=== PATIENT | male | born 1975 | race Hispanic/Latino ===

== ENCOUNTER 2018-01-06 20:16 | Emergency (ER) | payer MEDICAID, OTHER ==
[2018-01-06] MEDS ORDERED: Sodium Chloride 0.9% 500 ML IV STA (23:20)
--- NOTE | 2018-01-06 23:32 | ED PDOC ---
Lower Extremity Pain/Injury Time Seen by Provider: 01/06/18 23:00 Chief Complaint (Nursing): Lower Extremity Problem/Injury Chief Complaint (Provider): Left ankle pain History Per: Patient History/Exam Limitations: no limitations Onset/Duration Of Symptoms: Days (x1) Current Symptoms Are (Timing): Still Present Additional Complaint(s): 42 year old male presents to the ED complaining of left ankle pain since this morning. Patient states pain started this morning when he woke up which was mild at first but worsened throughout the day. Prior to arrival, pain was more severe and had a subjective fever and chills. Ankle had also gotten progressively more swollen since the morning. Denies trauma, injury, any other joint pain, cough, runny nose, throat pain, vomiting, diarrhea, dysuria, or frequency. PMD: [place] Past Medical History Reviewed: Historical Data, Nursing Documentation, Vital Signs Vital Signs: Last Vital Signs Temp 99.9 F H 01/06/18 21:17 Pulse 104 H 01/06/18 21:17 Resp 18 01/06/18 21:17 BP 128/94 H 01/06/18 21:17 Pulse Ox 97 01/06/18 21:17 - Medical History PMH: HTN - Surgical History Surgical History: No Surg Hx - Family History Family History: States: Hypertension - Social History Current smoker - smoking cessation education provided: No - Home Medications Home Medications: Ambulatory Orders Medication Instructions Recorded Indomethacin [Indocin] 50 mg PO TID #18 cap 01/07/18 - Allergies Allergies/Adverse Reactions: Allergies Allergy/AdvReac Type Severity Reaction Status Date / Time No Known Allergies Allergy Verified 10/28/14 15:17 Review of Systems ROS Statement: Except As Marked, All Systems Reviewed And Found Negative Constitutional: Positive for: Fever, Chills ENT: Negative for: Nose Discharge (runny nose), Throat Pain Respiratory: Negative for: Cough Gastrointestinal: Negative for: Vomiting, Diarrhea Genitourinary Male: Negative for: Dysuria, Frequency Musculoskeletal: Positive for: Other (Left ankle pain and swelling) Physical Exam - Reviewed Nursing Documentation Reviewed: Yes Vital Signs Reviewed: Yes - Physical Exam Appears: Positive for: In Acute Distress (Mild painful distress) Head Exam: Positive for: ATRAUMATIC, NORMOCEPHALIC Skin: Positive for: Warm, Dry Cardiovascular/Chest: Positive for: Regular Rate, Rhythm, Tachycardia Respiratory: Positive for: Normal Breath Sounds. Negative for: Respiratory Distress Extremity: Positive for: Capillary Refill (less than 2 seconds), Other (Left ankle: Diffusely edematous which is worse on the lateral malleolus, no bony tenderness to palpation, limited flexion secondary to pain, light touch intact). Negative for: Tenderness (Achilles tendon), Calf Tenderness Lymphatic: Negative for: Adenopathy Neurologic/Psych: Positive for: Alert. Negative for: Motor/Sensory Deficits - Laboratory Results Result Diagrams: 01/06/18 23:59 01/06/18 23:59 - ECG O2 Sat by Pulse Oximetry: 97 (RA) Pulse Ox Interpretation: Normal Medical Decision Making Medical Decision Making: Initial Impression: Ankle pain and fever Differential includes septic arthritis, inflammatory joint, ankle sprain Initial Plan: --VBG --CMP --CRP stat --Uric acid stat --CBC --Erythrocyte sedimentation stat --Sodium chloride 500mL IV --Toradol 30mg IV --Tylenol 975mg PO --Blood culture --Left ankle X-ray Scribe Attestation: Documented by Matthew Donaldson acting as a scribe for Earnestine Crabtree MD. Provider Scribe Attestation: All medical record entries made by the Scribe were at my direction and personally dictated by me. I have reviewed the chart and agree that the record accurately reflects my personal performance of the history, physical exam, medical decision making, and the department course for this patient. I have also personally directed, reviewed, and agree with the discharge instructions and disposition. Disposition - Clinical Impression Clinical Impression: Ankle pain - Disposition Disposition: Transfer of Care Disposition Time: 00:00 Condition: STABLE Prescriptions: Indomethacin [Indocin] 50 mg PO TID #18 cap Patient Signed Over To: Thomas Dangelo Handoff Comments: Pending ER workup, podiatry consult, and final ER disposition
--- NOTE | 2018-01-07 00:17 | ED PDOC ---
- Laboratory Results Result Diagrams: 01/06/18 23:59 01/06/18 23:59 - ECG O2 Sat by Pulse Oximetry: 97 (RA) Medical Decision Making Medical Decision Makin:00 Patient endorsed to this provider from Dr. Crabtree. Pending podiatry consult. 01:28 Lower Extremity Ultrasound Findings: Real-time ultrasound images of the deep venous system with Doppler evaluation. Normal compression, spontaneity and augmentation. Normal color Doppler. No intraluminal thrombus is seen. IMPRESSION: No evidence of deep venous thrombosis. 01:31 Labs reviewed and significant for elevated uric acid level. Patient reporting improvement of symptoms and was evaluated by podiatry who cleared patient for discharge with diagnosis of gout. Patient advised to follow up with Dr. Larkin. Condition stable. Scribe Attestation: Documented by Matthew Donaldson acting as a scribe for Thomas Dangelo MD. Provider Scribe Attestation: All medical record entries made by the Scribe were at my direction and personally dictated by me. I have reviewed the chart and agree that the record accurately reflects my personal performance of the history, physical exam, medical decision making, and the department course for this patient. I have also personally directed, reviewed, and agree with the discharge instructions and disposition. Disposition - Clinical Impression Clinical Impression: Gout - POA Present On Arrival: None - Disposition Referrals: Clemente Larkin DPM [Staff Provider] - Disposition: Routine/Home Disposition Time: :31 Condition: STABLE Prescriptions: Indomethacin [Indocin] 50 mg PO TID #18 cap Instructions: Gout, Lifestyle Changes to Manage Gout Forms: [employer] ([place])
[2018-01-07 00:38] LABS: BASO # 0.1 K/uL (0.0-0.2); BASO % 0.5 % (0.0-2.0); EOS % 0.3 % (0.0-4.0); HEMOGLOBIN 14.5 g/dL (12.0-18.0); LYMPH # 1.5 K/uL (1.0-4.3); LYMPH % 11.4 % (20.0-40.0); MEAN CELL VOLUME 93.5 fl (80.0-94.0); MEAN CORPUSCULAR HEMOGLOBIN 31.4 pg (27.0-31.0); MEAN CORPUSCULAR HGB CONC 33.6 g/dL (33.0-37.0); MEAN PLATELET VOLUME 7.8 fl (7.2-11.7); MONO # 0.7 K/uL (0.0-0.8); MONO % 4.9 % (0.0-10.0); NEUT # 10.9 K/uL (1.8-7.0); NEUT % 82.9 % (50.0-75.0); NRBC % 0.1 % (0.0-0.0); RBC 4.62 Mil/uL (4.40-5.90); RED CELL DISTRIBUTION WIDTH 13.3 % (11.5-14.5); WHITE BLOOD COUNT 13.2 K/uL (4.8-10.8)
[2018-01-07 00:48] LABS: ALB/GLOB RATIO 1.2 (1.0-2.1); ALBUMIN 4.3 g/dL (3.5-5.0); ALT/SGPT 28 U/L (21-72); AST/SGOT 16 U/L (17-59); BLOOD UREA NITROGEN 15 mg/dl (9-20); CALCIUM 8.9 mg/dL (8.4-10.2); GFR NON-AFRICAN AMERICAN > 60; URIC ACID 11.2 mg/Dl (3.5-8.5)
--- NOTE | 2018-01-07 01:22 | CP.PCM.CON ---
History of Present Illness - History of Present Illness History of Present Illness: Podiatry consult note for attending Dr. Larkin 42 year old male with PMH of HTN and hypovitaminosis D, Seen and evaluated at the ED for a left ankle pain, redness and swelling. Patient states that today morning he woke up with his left ankle swollen, red and painful. Patient states that the pain was sever about 9-10/10 on VAS scale. Patient states that he couldn't put any weight on his foot. Patient denies any trauma to his left foot and ankle. Patient denies any previous similar episodes. Patient states that yesterday night he drank a full six pack of beer. Patient states that he had episode of chills today morning and he measured his temprature and it was 101 f but when he came to the ED his temperature was normal. Patient denies any other pedal complaint at this time. He denies any tingling, numbness or burning sensation to his left foot and ankle. He denies any recent F/N/V or SOB. PMH: HTN and hypovitaminosis D. Meds: Lisinopril, HCTZ and Vitamin D. PSH: None. Allergies: NKDA. Social Hx: Denies smoking, or illicit drug use. Patient is a heavy EtOH user (drinks 3 times/week last one was yesterday a full six pack of beer) Review of Systems - Review of Systems Review of Systems: As per HPI - Constitutional Constitutional: As Per HPI Past Patient History - Past Social History Smoking Status: Unknown If Ever Smoked - CARDIAC Hx Hypertension: Yes - PSYCHIATRIC Hx Substance Use: No - ANESTHESIA Hx Anesthesia: No Meds Home Medications: Home Medication List Medication Instructions Recorded Confirmed Type Indomethacin [Indocin] 50 mg PO TID #18 cap 01/07/18 Rx Allergies/Adverse Reactions: Allergies Allergy/AdvReac Type Severity Reaction Status Date / Time No Known Allergies Allergy Verified 10/28/14 15:17 Physical Exam - Constitutional Appears: Well, Non-toxic, No Acute Distress - Head Exam Head Exam: ATRAUMATIC, NORMOCEPHALIC - Extremities Exam Additional comments: LE focused exam: Vasc: DP/PT 2/4 b/l. Cap refill < 3 sec to all digits. Temp gradient warm to warm on the left side and warm to cool on the right side. Moderate non pitting edema noted to the L ankle and extends down to the left foot. Left ankle erythema noted more on the medial malleolous. Neuro: Gross and protective sensations are intact b/l. Derm: No open lesions. Moderate non pitting edema noted to the L ankle and extends down to the left foot. Left ankle erythema noted more on the medial malleolous. MSK: Tenderness on palpating the L perimallolar area medial > lateral. Pain with left ankle ROM specially with dorsiflexion and eversion. Muscle power intact 5/5 to all groups b/l. - Neurological Exam Neurological exam: Alert, Oriented x3 Results - Vital Signs Recent Vital Signs: Last Vital Signs Temp 99.9 F H 01/06/18 21:17 Pulse 104 H 01/06/18 21:17 Resp 18 01/06/18 21:17 BP 128/94 H 01/06/18 21:17 Pulse Ox 97 01/07/18 00:17 - Labs Result Diagrams: 01/06/18 23:59 01/06/18 23:59 Labs: Laboratory Results - last 24 hr 01/06/18 01/06/18 23:59 23:59 WBC 13.2 H RBC 4.62 Hgb 14.5 Hct 43.2 MCV 93.5 MCH 31.4 H MCHC 33.6 RDW 13.3 Plt Count 231 MPV 7.8 Neut % (Auto) 82.9 H Lymph % (Auto) 11.4 L [place] % (Auto) 4.9 Eos % (Auto) 0.3 Baso % (Auto) 0.5 Neut # (Auto) 10.9 H Lymph # (Auto) 1.5 [place] # (Auto) 0.7 Eos # (Auto) 0.0 Baso # (Auto) 0.1 Sodium 137 Potassium 3.3 L Chloride 102 Carbon Dioxide 25 Anion Gap 13 BUN 15 Creatinine 0.7 L Est GFR ( Amer) > 60 Est GFR (Non-Af Amer) > 60 Random Glucose 135 H Uric Acid 11.2 H Calcium 8.9 Total Bilirubin 3.6 H AST 16 L ALT 28 Alkaline Phosphatase 96 Total Protein 7.7 Albumin 4.3 Globulin 3.5 Albumin/Globulin Ratio 1.2 Assessment & Plan - Assessment and Plan (Free Text) Assessment: 42 y/o M patient seen and evaluated in the ED for pain, Erythema and swelling of his Left ankle (Acute gouty attack) Plan: - Patient seen and evaluated in the ED. - Plan discussed in details with attending Dr. Larkin. - Charts, labs and vitals reviewed; Afebrile, WBCs 13.2. - Serum uric acid elevated 11.2 - Left ankle 3 views x-ray reviewed: No osseous fractures noted. - LLE venous duplex negative for DVT - Patient received IV fluids (LR) in the ED. - Patient received 30 mg of Toradol IV for the pain. - Rx; Indomethacin 50 mg tab PO TID for 4 days and BID for another 3 day prescribed by the ED doctor - Patient instructed to elevate his LLE and apply Ice over his left ankle. - Patient instructed to avoid EtOH drinking and to avoid all types of food that exacerbate gouty attacks - Patient expressed verbal understanding. - Patient will follow up at Dr. Larkin's Office. - Thank you for consulting podiatry service. - Date & Time Date: 01/07/18 Time: 01:01
[2018-01-07 01:47] VITALS: BP 126/60; PULSE 88; RESP 20; TEMP 98.7
[2018-01-07 03:25] VITALS: O2SAT 97
[2018-01-07 08:23] LABS: VENOUS BLOOD GAS BASE EXCESS 4.3 mmol/L (0.0-2.0); VENOUS BLOOD GAS PCO2 35 mmHg (40-60); VENOUS BLOOD GAS PO2 48 mm/Hg (30-55)
--- NOTE | 2018-01-07 09:53 | US ---
Date of service: 01/07/2018 HISTORY: LEFT ankle swelling. PRIORS: None. FINDINGS: 2-D, color and duplex Doppler analysis of the lower extremity venous circulation using routine protocol from the femoral veins through the popliteal veins. Venous compressibility: Normal. Flow and augmentation patterns: Normal. Visualized veins upper third of calf: Normal. Rivera cyst: None. IMPRESSION: No sonographic or Doppler evidence for DVT in left lower extremity. The preliminary findings for this examination were reported by [facility] at 1:28 a.m. on 01/07/2018. There is concurrence of this report with the preliminary findings.
--- NOTE | 2018-01-07 12:10 | RAD ---
Date of service: 01/06/2018 PROCEDURE: Left Ankle Radiographs. HISTORY: LEFT ankle swelling COMPARISON: None available. FINDINGS: BONES: Normal. No fracture. JOINTS: Normal. No osteoarthritis. Ankle mortise maintained. Talar dome intact SOFT TISSUES: Normal. OTHER FINDINGS: None. IMPRESSION: Normal left ankle radiographs.
== END 2018-01-07 02:04 | disposition home or self-care (01) ==
LOC: H.ER 20:16
DX: M25.572 Pain in left ankle and joints of left foot (principal); M10.9 Gout, unspecified; E55.9 Vitamin D deficiency, unspecified; I10 Essential (primary) hypertension
CPT/HCPCS: 73610; 80053; 82803; 84550; 85025; 85651; 86140; 87040; 93971; 96360; 99284; J1885; J7040